=== PATIENT | female | born 1990 | race Caucasian/White ===

== ENCOUNTER 2016-06-11 23:12 | Emergency (ER) | payer OTHER ==
--- NOTE | 2016-06-11 23:16 | PDOC ---
History of Present Illness - General Chief Complaint: Rash Stated Complaint: HIVES,HEADACHE - History of Present Illness Initial Comments: This 25-year-old woman without significant past medical history presents with a few day history of hives. Patient states that she began to develop itchy rash a few days ago and symptoms have continued. She denies exposure to any new medication/supplement, topical preparation or food. She denies lip/tongue swelling, difficulty swallowing or difficulty breathing. For the last 2 days she has taken Claritin during the day but itching persists. She states she has had hives in the past but not as severe as the current episode. She has been on able to sleep for the last 2 nights secondary to pruritus that she has experienced. Past History - Past Medical History Allergies/Adverse Reactions: Allergies Allergy/AdvReac Type Severity Reaction Status Date / Time No Known Allergies Allergy Unverified 06/11/16 23:16 Home Medications: Ambulatory Orders Prednisone [Deltasone -] 20 mg PO DAILY #5 tablet 06/11/16 Review of Systems - Review of Systems Able to Perform ROS?: Yes Comments:: 12 point review of systems is negative except for what is noted in the history of present illness *Physical Exam - Physical Exam Comments: GENERAL: The patient is awake, alert, and fully oriented, in no acute distress. Vital signs as noted. HEAD: Normal with no signs of trauma. EYES: Pupils equal, round and reactive to light, extraocular movements intact, sclera anicteric, conjunctiva clear with no pallor. ENT: moist mucous membranes. Ears normal, nares patent, oropharynx clear without exudates. No lip/tongue/uvular edema NECK: Normal range of motion, supple without lymphadenopathy, JVD, or masses. No stridor LUNGS: Breath sounds equal, clear to auscultation bilaterally. No wheeze/ crackles. HEART: Regular rate and rhythm, normal S1 and S2 without murmur or rub. ABDOMEN: Soft/nontender/nondistended. BS wnl. No guarding or rebound. No palpable masses. No hepatosplenomegaly. EXTREMITIES: Normal range of motion, no edema. No clubbing or cyanosis. No cords, erythema, or tenderness. NEUROLOGICAL: Cranial nerves II through XII grossly intact. Normal speech, normal gait. PSYCH: Normal mood, normal affect. SKIN: Warm, Dry, normal turgor; scattered erythematous maculopapular rash of bilateral upper and lower extremities and upper back Progress Note - Progress Note Progress Note: This 25-year-old woman presents with a few day history of urticaria of unclear etiology. Patient has had no symptoms of anaphylaxis. Exam reveals no upper airway edema or evidence of airway compromise. Skin exam shows scattered maculopapular rash consistent with hives. Although the patient states she has not had any new food or medication recently , it was explained that cross-reactivity can occur and she may have developed ALLERGY to something she has tolerated in the past. She will likely need ALLERGY testing in the future to elucidate the etiology of her ALLERGIC symptoms. Since patient has had significant pruritus that has been disturbing her sleep, will start prednisone course (20 mg for 5 days); patient has been advised also to take Benadryl at night if she has any breakthrough itching. Referral information for manager intensive care unit (Dr. Leon) ,who works in ENT[facility]ALLERGY group in [place] close to where the patient herself works, given to the patient. She should plan on following up with the next few days with the group. Patient should return to the emergency room if she develops any upper airway swelling or has difficulty swallowing/breathing. *DC/Admit/Observation/Transfer Diagnosis at time of Disposition: Urticaria - Discharge Dispostion Disposition: HOME Condition at time of disposition: Stable - Prescriptions Prescriptions: Prednisone [Deltasone -] 20 mg PO DAILY #5 tablet - Referrals Referrals: Elisha Canas MD [Primary Care Provider] - Elian Leon MD [Non Staff, Medical] - 3 days - Patient Instructions Printed Discharge Instructions: Hives Additional Instructions: Prednisone 20 mg daily for the next 4 days (take with food) Claritin during day/Benadryl at night for itching as needed Pepcid 20 mg daily Follow-up with Dr. Leon (manager intensive care unit) at [address] [place] [address] within the next week Return to ER immediately if you have any lip/tongue swelling or difficulty swallowing/breathing
[2016-06-11 23:24] VITALS: BP 123/75; PULSE 73; TEMP 98.9; BMI 27.1
[2016-06-11] MEDS ORDERED: predniSONE 20 MG TABLET (UD) PO ONE (23:45)
[2016-06-11] MEDS ORDERED: predniSONE 20 MG TABLET (UD) ONE (23:49)
== END 2016-06-11 23:56 | disposition home or self-care (01) ==
LOC: FER 23:12
DX: L50.9 Urticaria, unspecified (principal)
CPT/HCPCS: 99281-25